=== PATIENT | male | born 1995 | race African-American/Black ===

== ENCOUNTER 2021-04-07 20:18 | Emergency (ER) | payer MEDICAID ==
[~2021-04-07] VITALS: Ht 170.2 cm; Wt 73.0 kg
[2021-04-07 20:22] VITALS: BP 134/79
[2021-04-07] MEDS ORDERED: IBUPROFEN 600MG TABLET PO ONE (20:45)
[2021-04-07] MEDS ORDERED: KETOROLAC 60MG/2ML VIAL IM ONE (21:00)
[2021-04-07] MEDS ORDERED: IBUP-2029 MT (21:54)
== END 2021-04-07 22:36 | disposition home or self-care (01) ==
LOC: ER 20:18
DX: M54.5 Low back pain (principal); R07.9 Chest pain, unspecified; J45.909 Unspecified asthma, uncomplicated; Z79.899 Other long term (current) drug therapy; V49.88XA Car occupant (driver) (passenger) injured in other specified transport accidents, initial encounter; Y93.89 Activity, other specified; Y92.89 Other specified places as the place of occurrence of the external cause; Y99.8 Other external cause status
CPT/HCPCS: 71045; 72128; 99284; J1885